=== PATIENT | female | born 1965 | race Caucasian/White ===

== ENCOUNTER 2018-04-30 22:01 | Inpatient (IN) | payer OTHER ==
[~2018-04-30 22:01] MED LIST: MELATONIN 5 MG TABLETS PO PRN
--- NOTE | 2018-04-30 22:54 | HP ---
CIWA Score - CIWA Score Nausea/Vomitin Muscle Tremors: 2 Anxiety: 3 Agitation: 3 Paroxysmal Sweats: 2 Orientation: 0-Oriented Tacttile Disturbances: 0-None Auditory Disturbances: 0-None Visual Disturbances: 0-None Headache: 0-None Present CIWA-Ar Total Score: 12 Admission ROS S - HPI Chief Complaint: alcohol withdrawal Allergies/Adverse Reactions: Allergies Allergy/AdvReac Type Severity Reaction Status Date / Time Fish Containing Products Allergy Severe Rash Verified 04/30/18 22:54 Penicillins Allergy Severe Difficulty Verified 04/30/18 22:54 Breathing History of Present Illness: Patient is 52 yo female with hx of alcohol and nicotine dependence is here seeking detox, brought in by her friend. Patient is a poor historian. PMHX: HTN , and anxiety. Reports hx of alcohol related seizure, last episode a year ago. Denies suicidal / homicidal ideation or hx of suicide attempts. Last detox at [facility] February 2016. Longest period of sobriety 10 years. Exam Limitations: No Limitations - Review of Systems Constitutional: Chills, Loss of Appetite, Changes in sleep, Unintentional Wgt. Loss EENT: reports: No Symptoms Reported Respiratory: reports: No Symptoms reported Cardiac: reports: No Symptoms Reported GI: reports: Nausea, Poor Appetite, Poor Fluid Intake : reports: No Symptoms Reported Musculoskeletal: reports: No Symptoms Reported Integumentary: reports: No Symptoms Reported Neuro: reports: See HPI Endocrine: reports: Increased Thirst Hematology: reports: No Symptoms Reported Psychiatric: reports: Orientated x3, Anxious Other Systems: Reviewed and Negative Patient History - Patient Medical History Hx Anemia: No Hx Asthma: No Hx Chronic Obstructive Pulmonary Disease (COPD): No Hx Cancer: No Hx Cardiac Disorders: No Hx Congestive Heart Failure: No Hx Hypertension: Yes (not on meds ) Hx Hypercholesterolemia: No Hx Pacemaker: No HX Cerebrovascular Accident: No Hx Seizures: Yes (last episode 1 year ago ) Hx Dementia: No Hx Diabetes: No Hx Gastrointestinal Disorders: Yes (acid reflux) Hx Liver Disease: No Hx Genitourinary Disorders: No Hx Sexually Transmitted Disorders: No Hx Renal Disease (ESRD): No Hx Thyroid Disease: No Hx Human Immunodeficiency Virus (HIV): No Hx Hepatitis C: No Hx Depression: Yes Hx Suicide Attempt: No Hx Bipolar Disorder: No Hx Schizophrenia: No - Patient Surgical History Past Surgical History: No Hx Neurologic Surgery: No Hx Cataract Extraction: No Hx Cardiac Surgery: No Hx Lung Surgery: No Hx Breast Surgery: No Hx Breast Biopsy: No Hx Abdominal Surgery: No Hx Appendectomy: No Hx Cholecystectomy: No Hx Genitourinary Surgery: No Hx Section: No Hx Orthopedic Surgery: No Hx Hysterectomy: No Other Surgical History: abdominal plasty Anesthesia Reaction: No - PPD History Date: 02/29/16 PPD to be Administered?: Yes - Reproductive History Patient is a Female of Child Bearing Age (11 -55 yrs old): Yes (Post menopausal ) Last Menstrual Period: 01/16/16 Patient : No - Smoking Cessation Smoking history: Current every day smoker Have you smoked in the past 12 months: Yes Aproximately how many cigarettes per day: 20 Hx Chewing Tobacco Use: No Initiated information on smoking cessation: Yes 'Breaking Loose' booklet given: 04/30/18 - Substance & Tx. History Hx Alcohol Use: Yes Hx Substance Use: Yes Substance Use Type: Alcohol Hx Substance Use Treatment: Yes (Last detox at [facility] February 2016.) - Substances Abused Alcohol Route: Oral Frequency: Daily Amount used: 1 litter of wine per day Age of first use: 8 Date of Last Use: 04/30/18 Family Disease History - Family Disease History Family Disease History: CA: Grandparent Admission Physical Exam [facility] - Physical General Appearance: Yes: Disheveled, Mild Distress, Irritable, Sweating, Other ( malodorous) HEENTM: Yes: EOMI, Hearing grossly Normal, Normal ENT Inspection, Normocephalic , Normal Voice, XI, Pharynx Normal, Tm's normal Respiratory: Yes: Chest Non-Tender, Lungs Clear, Normal Breath Sounds, No Respiratory Distress, No Accessory Muscle Use Neck: Yes: Within Normal Limits Breast: Yes: Breast Exam Deferred Cardiology: Yes: Regular Rhythm, Regular Rate Abdominal: Yes: Normal Bowel Sounds, Non Tender, Soft, Protuberent Genitourinary: Yes: Within Normal Limits Back: Yes: Normal Inspection Musculoskeletal: Yes: full range of Motion, Gait Steady, Pelvis Stable Extremities: Yes: Normal Capillary Refill, Normal Inspection, Normal Range of Motion, Non-Tender Neurological: Yes: electrician maintenance II-XII NML intact, Fully Oriented, Alert, Motor Strength 5/5, Depressed Affect Integumentary: Yes: Normal Color, Warm, Diaphoresis Lymphatic: Yes: Within Normal Limits - Diagnostic (1) Nausea Current Visit: Yes Status: Acute (2) Alcohol dependence with uncomplicated withdrawal Current Visit: Yes Status: Acute (3) GERD (gastroesophageal reflux disease) Current Visit: Yes Status: Chronic Qualifiers: Esophagitis presence: without esophagitis Qualified Code(s): K21.9 - Gastro -esophageal reflux disease without esophagitis Cleared for Admission B[facility] - Detox or Rehab B[facility] Level of Care: Medically Managed Detox Regimen/Protocol: Valium [facility] Breath Alcohol Content Breath Alcohol Content: 0
[2018-04-30] MEDS ORDERED: LOPERAMIDE HCL 2 MG CAPSULE PO PRN (23:15)
[2018-04-30] MEDS ORDERED: P-EPHED 60MG/TRIPROLIDI 2.5MG TABLET PO PRN (23:15)
[2018-04-30] MEDS ORDERED: IBUPROFEN 400 MG TABLET (FP) PO PRN (23:15)
[2018-04-30] MEDS ORDERED: hydrOXYzine PAMOATE 50 MG CAPSULE (FP) PO PRN (23:15)
[2018-04-30] MEDS ORDERED: ACETAMINOPHEN 325 MG TABLET (FP) PO PRN (23:15)
[2018-04-30] MEDS ORDERED: MAGNESIUM CITRATE 300 ML BOTTLE PO PRN (23:15)
[2018-04-30] MEDS ORDERED: MENTHOL/PHENOL 1 EACH UD MM PRN (23:15)
[2018-04-30] MEDS ORDERED: MAGNESIUM HYDROX 2400MG/30ML ORAL SUSPENSION 30 ML CUP PO PRN (23:15)
[2018-04-30] MEDS ORDERED: guaiFENesin/D-METHORPHAN HB 10 ML UNIT-DOSE CUPS PO PRN (23:15)
[2018-04-30] MEDS ORDERED: NICOTINE POLACRILEX 2 MG GUM BC PRN (23:15)
[2018-04-30] MEDS ORDERED: diazePAM 5 MG TABLET PO ONE (23:15)
[2018-04-30] MEDS ORDERED: MAG HYDROX/AL HYDROX/SIMETH 30 ML UNIT-DOSE CUP PO PRN (23:15)
[2018-04-30 23:41] VITALS: BMI 26.6
[2018-05-01] MEDS: diazePAM 5 MG TABLET PO SCH ×6 (00:48→22:48)
--- NOTE | 2018-05-01 08:57 | EKG ---
Test Reason : Blood Pressure : / mmHG Vent. Rate : 099 BPM Atrial Rate : 099 BPM P-R Int : 144 ms QRS Dur : 092 ms QT Int : 362 ms P-R-T Axes : 047 -01 044 degrees QTc Int : 464 ms NORMAL SINUS RHYTHM MINIMAL VOLTAGE CRITERIA FOR LVH, MAY BE NORMAL VARIANT NO PREVIOUS ECGS AVAILABLE Confirmed by AL PARRA MD ([id number]) on 05/01/2018 8:57:17 AM Referred By: Confirmed By:AL PARRA MD
[2018-05-01] MEDS: diazePAM 5 MG TABLET PO PRN (09:34)
[2018-05-01 09:53] LABS: HEMATOCRIT 38.8 % (32.4-45.2); HEMOGLOBIN 13.2 GM/dL (10.7-15.3); MCH 29.2 pg (25.7-33.7); MCHC 34.1 g/dl (32.0-36.0); MEAN CELL VOLUME 85.5 fl (80-96); MEAN PLT VOLUME 7.2 fl (7.5-11.1); PLATELET COUNT 60 K/MM3 (134-434); RBC 4.54 M/mm3 (3.60-5.2); RDW 18.8 % (11.6-15.6)
[2018-05-01] MEDS: NICOTINE 21 MG/24 HOURS TOPICAL PATCH TD SCH (10:11)
[2018-05-01] MEDS: PRENATAL VITAMINS W/ FOLIC ACID TABLET (FP) PO SCH (10:12)
[2018-05-01] MEDS: LISINOPRIL 10 MG TABLET (FP) PO SCH (10:12)
[2018-05-01 10:51] LABS: ALBUMIN 3.1 g/dl (3.4-5.0); ANION GAP 11 (8-16); BILIRUBIN,TOTAL 0.3 mg/dL (0.2-1.0); BLOOD UREA NITROGEN 7 mg/dL (7-18); CALCIUM 7.7 mg/dL (8.5-10.1); CHLORIDE 101 mmol/L (98-107); CO2 29 mmol/L (21-32); CREATININE 0.5 mg/dL (0.55-1.02); GLUCOSE,RANDOM 80 mg/dL (74-106); POTASSIUM 3.6 mmol/L (3.5-5.1); SGOT/AST 61 U/L (15-37); SGPT/ALT 48 U/L (12-78); SODIUM 141 mmol/L (136-145); TOT PROT 6.9 g/dl (6.4-8.2)
[2018-05-01 10:52] LABS: ALK PHOS 112 U/L (45-117)
--- NOTE | 2018-05-01 11:53 | PN ---
S CIWA - CIWA Score Nausea/Vomitin-No Nausea/No Vomiting Muscle Tremors: 4-Moderate,w/Arms Extend Anxiety: 4-Mod. Anxious/Guarded Agitation: 4-Moderately Restless Paroxysmal Sweats: 1-Minimal Palms Moist Orientation: 0-Oriented Tacttile Disturbances: 0-None Auditory Disturbances: 0-None Visual Disturbances: 0-None Headache: 0-None Present CIWA-Ar Total Score: 13 B[facility] Progress Note (SOAP) Subjective: ANXIETY,SWEATS,INTERMITTENT SLEEP Objective: 05/01/18 11:52 Vital Signs 05/01/18 05/01/18 05/01/18 04:00 04:30 05:00 Temperature Pulse Rate 91 H 95 H 96 H Respiratory 18 18 18 Rate Blood Pressure 05/01/18 05/01/18 05/01/18 05:30 06:00 06:30 Temperature 97.2 F L Pulse Rate 98 H 98 H 87 Respiratory 18 18 18 Rate Blood Pressure 138/91 05/01/18 05/01/18 05/01/18 07:00 07:30 08:00 Temperature Pulse Rate 87 107 H 107 H Respiratory 18 18 18 Rate Blood Pressure 05/01/18 05/01/18 05/01/18 09:00 09:30 10:00 Temperature 98.1 F Pulse Rate 105 H 108 H 102 H Respiratory 18 18 18 Rate Blood Pressure 162/107 05/01/18 10:30 Temperature Pulse Rate 102 H Respiratory 18 Rate Blood Pressure Laboratory Tests 05/01/18 05/01/18 07:00 07:00 WBC 4.0 RBC 4.54 Hgb 13.2 Hct 38.8 MCV 85.5 MCH 29.2 MCHC 34.1 RDW 18.8 H Plt Count 60 L D MPV 7.2 L D Sodium 141 Potassium 3.6 Chloride 101 Carbon Dioxide 29 Anion Gap 11 BUN 7 Creatinine 0.5 L Creat Clearance w eGFR > 60 Random Glucose 80 Calcium 7.7 L Total Bilirubin 0.3 D AST 61 H ALT 48 Alkaline Phosphatase 112 Total Protein 6.9 Albumin 3.1 L Assessment: 05/01/18 11:53 WITHDRAWAL SX Plan: CONTINUE DETOX
--- NOTE | 2018-05-01 12:00 | CONSULT ---
[facility] Psychiatric Consult - Data Date of interview: 05/01/18 Admission source: [facility] Identifying data: This is 52 years old woman mother of 2, unemployed(lost her job as [employer]OG [employer]ER recently),domiciled seeking detox treatment for alcohol dependence. Substance Abuse History: Patient reports drinking problems since 15-16 years old ,became progressively heavy .Currently she consumes about 1 liter of wine daily. Medical History: Significant for GERD,Alcohol related seizures. Psychiatric History: Patient denies previous psychiatric history,reports anxiety on and off specially while withdrawing from alcohol.Not on any medications. Physical/Sexual Abuse/Trauma History: Denies. Mental Status Exam - Mental Status Exam Alert and Oriented to: Time, Place, Person Cognitive Function: Grossly Intact Patient Appearance: Unkempt Mood: Euthymic Affect: Mood Congruent Patient Behavior: Cooperative Speech Pattern: Clear Voice Loudness: Normal Thought Process: Goal Oriented Thought Disorder: Not Present Hallucinations: Denies Suicidal Ideation: Denies Homicidal Ideation: Denies Insight/Judgement: Fair Sleep: Fair Appetite: Fair Muscle strength/Tone: Normal Gait/Station: Normal Psychiatric Findings - Problem List ([place] 1, 2,3) (1) GERD (gastroesophageal reflux disease) Current Visit: Yes Status: Chronic Qualifiers: Esophagitis presence: esophagitis presence not specified Qualified Code(s) : K21.9 - Gastro-esophageal reflux disease without esophagitis (2) Alcohol related seizure Current Visit: Yes Status: Inactive (3) EtOH dependence Current Visit: Yes Status: Chronic (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
[2018-05-01] MEDS ORDERED: ONDANSETRON *ODT* 4 MG TABLET SL PRN (13:35)
[2018-05-01] MEDS ORDERED: cloNIDine HCL 0.1 MG TABLET PO ONE (13:45)
[2018-05-01] MEDS ORDERED: TRIMETHOBENZAMIDE HCL 200MG/2ML INJ IM ONE (14:00)
[2018-05-01] MEDS: THIAMINE HCL 100 MG TABLET (FP) PO SCH (22:49)
--- NOTE | 2018-05-01 23:41 | PN ---
[facility] Progress Note Note: Called to see patient because patient heart rate at 125 bpm. Patient is alert and denies chest pain, SOB, or palpitations. Patient is c/o continued vomiting and has been refusing Valium. Vital Signs - 8 hr 05/01/18 05/01/18 05/01/18 16:30 17:00 17:30 Temperature Pulse Rate 107 H 105 H 110 H Respiratory 18 18 18 Rate Blood Pressure 05/01/18 05/01/18 05/01/18 18:00 18:30 18:35 Temperature 98.4 F Pulse Rate 112 H 109 H 105 H Respiratory 18 18 18 Rate Blood Pressure 149/103 05/01/18 05/01/18 05/01/18 19:00 19:30 20:00 Temperature Pulse Rate 102 H 100 H 158 H Respiratory 18 18 18 Rate Blood Pressure 05/01/18 05/01/18 05/01/18 20:30 21:00 21:30 Temperature Pulse Rate 146 H 122 H 120 H Respiratory 18 18 18 Rate Blood Pressure 05/01/18 05/01/18 05/01/18 22:00 22:30 22:55 Temperature 97.0 F L Pulse Rate 119 H 114 H 146 H Respiratory 18 18 20 Rate Blood Pressure 139/94 Patient HR 124 w/ RR. Abd soft and non-tender. Vomiting yellowish liquid. Lungs CTA. Diaphoretic. Discussed the importance of notifying of nausea and vomiting. Discussed the relationship of vomiting and tachycardia to withdrawal symptoms. Will put on standing order for zofran for next 24 hours. Continue Valium. Will repeat EGG in am.
[2018-05-01] MEDS: ONDANSETRON *ODT* 4 MG TABLET SL SCH (23:52)
[2018-05-02] MEDS: ONDANSETRON *ODT* 4 MG TABLET SL SCH ×3 (07:00→22:32)
[2018-05-02] MEDS ORDERED: TRIMETHOBENZAMIDE HCL 200MG/2ML INJ IM PRN (11:20)
[2018-05-02] MEDS: diazePAM 5 MG TABLET PO SCH ×2 (12:44→22:32)
[2018-05-02] MEDS: PRENATAL VITAMINS W/ FOLIC ACID TABLET (FP) PO SCH (12:45)
[2018-05-02] MEDS: LISINOPRIL 10 MG TABLET (FP) PO SCH (12:45)
[2018-05-02] MEDS: NICOTINE 21 MG/24 HOURS TOPICAL PATCH TD SCH (12:48)
[2018-05-02] MEDS: cloNIDine HCL 0.1 MG TABLET PO PRN ×2 (14:42→22:31)
[2018-05-02] MEDS: diazePAM 5 MG TABLET PO PRN (14:42)
--- NOTE | 2018-05-02 16:07 | PN ---
S CIWA - CIWA Score Nausea/Vomitin-Cont. Nausea/Vomiting Muscle Tremors: 2 Anxiety: 2 Agitation: 2 Paroxysmal Sweats: 1-Minimal Palms Moist Orientation: 0-Oriented Tacttile Disturbances: 1-Very Mild Itch/Numbness Auditory Disturbances: 0-None Visual Disturbances: 1-Very Mild Sensitivity Headache: 2-Mild CIWA-Ar Total Score: 18 [facility] Progress Note (SOAP) Subjective: Nausea, vomiting, anxiety and tremors Objective: 05/02/18 16:04 Vital Signs - 8 hr 05/02/18 05/02/18 10:46 15:02 Temperature 97.1 F L 97.9 F Pulse Rate 119 H 123 H Respiratory 18 16 Rate Blood Pressure 131/92 140/85 Laboratory Last Values WBC 4.0 K/mm3 (4.0-10.0) 05/01/18 07:00 RBC 4.54 M/mm3 (3.60-5.2) 05/01/18 07:00 Hgb 13.2 GM/dL (10.7-15.3) 05/01/18 07:00 Hct 38.8 % (32.4-45.2) 05/01/18 07:00 MCV 85.5 fl (80-96) 05/01/18 07:00 MCH 29.2 pg (25.7-33.7) 05/01/18 07:00 MCHC 34.1 g/dl (32.0-36.0) 05/01/18 07:00 RDW 18.8 % (11.6-15.6) H 05/01/18 07:00 Plt Count 60 K/MM3 (134-434) L D 05/01/18 07:00 MPV 7.2 fl (7.5-11.1) L D 05/01/18 07:00 Sodium 141 mmol/L (136-145) 05/01/18 07:00 Potassium 3.6 mmol/L (3.5-5.1) 05/01/18 07:00 Chloride 101 mmol/L (98-107) 05/01/18 07:00 Carbon Dioxide 29 mmol/L (21-32) 05/01/18 07:00 Anion Gap 11 (8-16) 05/01/18 07:00 BUN 7 mg/dL (7-18) 05/01/18 07:00 Creatinine 0.5 mg/dL (0.55-1.02) L 05/01/18 07:00 Creat Clearance w eGFR > 60 (>60) 05/01/18 07:00 Random Glucose 80 mg/dL (74-106) 05/01/18 07:00 Calcium 7.7 mg/dL (8.5-10.1) L 05/01/18 07:00 Total Bilirubin 0.3 mg/dL (0.2-1.0) D 05/01/18 07:00 AST 61 U/L (15-37) H 05/01/18 07:00 ALT 48 U/L (12-78) 05/01/18 07:00 Alkaline Phosphatase 112 U/L (45-117) 05/01/18 07:00 Total Protein 6.9 g/dl (6.4-8.2) 05/01/18 07:00 Albumin 3.1 g/dl (3.4-5.0) L 05/01/18 07:00 RPR Titer Nonreactive (NONREACTIVE) 05/01/18 07:00 Labs noted, no panic results N/V x 2 days, unable to keep anything down Assessment: 05/02/18 16:05 Withdrawal sx Nausea and Vomiting Plan: Continue detox Tigan 200mg IM Q 8hrs
[2018-05-02] MEDS: THIAMINE HCL 100 MG TABLET (FP) PO SCH (22:31)
[2018-05-03] MEDS: PRENATAL VITAMINS W/ FOLIC ACID TABLET (FP) PO SCH (10:26)
[2018-05-03] MEDS: diazePAM 5 MG TABLET PO SCH (10:26)
[2018-05-03] MEDS: LISINOPRIL 10 MG TABLET (FP) PO SCH (10:27)
[2018-05-03] MEDS: NICOTINE 21 MG/24 HOURS TOPICAL PATCH TD SCH (10:27)
--- NOTE | 2018-05-03 12:29 | PN ---
[facility] Progress Note (SOAP) Subjective: FEELING BETTER NO TREMOR LESS SWEAT SLEEP BETTER AT NIGHT Objective: 05/03/18 12:27 Vital Signs Temperature 97.7 F 05/03/18 10:26 Pulse Rate 83 05/03/18 10:26 Respiratory Rate 18 05/03/18 10:26 Blood Pressure 99/64 05/03/18 10:26 O2 Sat by Pulse Oximetry (%) Laboratory Last Values WBC 4.0 K/mm3 (4.0-10.0) 05/01/18 07:00 RBC 4.54 M/mm3 (3.60-5.2) 05/01/18 07:00 Hgb 13.2 GM/dL (10.7-15.3) 05/01/18 07:00 Hct 38.8 % (32.4-45.2) 05/01/18 07:00 MCV 85.5 fl (80-96) 05/01/18 07:00 MCH 29.2 pg (25.7-33.7) 05/01/18 07:00 MCHC 34.1 g/dl (32.0-36.0) 05/01/18 07:00 RDW 18.8 % (11.6-15.6) H 05/01/18 07:00 Plt Count 60 K/MM3 (134-434) L D 05/01/18 07:00 MPV 7.2 fl (7.5-11.1) L D 05/01/18 07:00 Sodium 141 mmol/L (136-145) 05/01/18 07:00 Potassium 3.6 mmol/L (3.5-5.1) 05/01/18 07:00 Chloride 101 mmol/L (98-107) 05/01/18 07:00 Carbon Dioxide 29 mmol/L (21-32) 05/01/18 07:00 Anion Gap 11 (8-16) 05/01/18 07:00 BUN 7 mg/dL (7-18) 05/01/18 07:00 Creatinine 0.5 mg/dL (0.55-1.02) L 05/01/18 07:00 Creat Clearance w eGFR > 60 (>60) 05/01/18 07:00 Random Glucose 80 mg/dL (74-106) 05/01/18 07:00 Calcium 7.7 mg/dL (8.5-10.1) L 05/01/18 07:00 Total Bilirubin 0.3 mg/dL (0.2-1.0) D 05/01/18 07:00 AST 61 U/L (15-37) H 05/01/18 07:00 ALT 48 U/L (12-78) 05/01/18 07:00 Alkaline Phosphatase 112 U/L (45-117) 05/01/18 07:00 Total Protein 6.9 g/dl (6.4-8.2) 05/01/18 07:00 Albumin 3.1 g/dl (3.4-5.0) L 05/01/18 07:00 RPR Titer Nonreactive (NONREACTIVE) 05/01/18 07:00 LAB NOTED Assessment: 05/03/18 12:27 MILD WITHDRAWAL SX ALCOHOL RELATED LIVER ENZYME ELEVATION Plan: MEDICALLY SUPERVISED DETOX DISCUSS LIVER ENZYME ELEVATION RELATED TO ALCOHOL CONSUMPTION
[2018-05-03] MEDS: diazePAM 5 MG TABLET PO PRN (14:27)
[2018-05-03 23:04] VITALS: BP 109/70; PULSE 95; TEMP 98.1
[2018-05-04] MEDS ORDERED: diazePAM 5 MG TABLET PO SCH (10:00)
--- NOTE | 2018-05-04 10:14 | DS ---
[facility] Detox Discharge Summary Admission Date: 04/30/18 Discharge Date: 05/04/18 - History Present History: Alcohol Dependence Additional Comments: 52 years old female admitted 04/30/18 for alcohol withdrawal sx completed alcohol detox regimen tolerate well no alcohol withdrawal sx patient left the detox unit early of the shift the provider does not have the opportunity face to face with the patient - Physical Exam Results Vital Signs: Vital Signs Temperature 98.1 F 05/03/18 23:03 Pulse Rate 95 H 05/03/18 23:03 Respiratory Rate 18 05/04/18 00:30 Blood Pressure 109/70 05/03/18 23:03 O2 Sat by Pulse Oximetry (%) Pertinent Admission Physical Exam Findings: alcohol withdrawal sx Vital Signs Temperature 98.1 F 05/03/18 23:03 Pulse Rate 95 H 05/03/18 23:03 Respiratory Rate 18 05/04/18 00:30 Blood Pressure 109/70 05/03/18 23:03 O2 Sat by Pulse Oximetry (%) Laboratory Last Values WBC 4.0 K/mm3 (4.0-10.0) 05/01/18 07:00 RBC 4.54 M/mm3 (3.60-5.2) 05/01/18 07:00 Hgb 13.2 GM/dL (10.7-15.3) 05/01/18 07:00 Hct 38.8 % (32.4-45.2) 05/01/18 07:00 MCV 85.5 fl (80-96) 05/01/18 07:00 MCH 29.2 pg (25.7-33.7) 05/01/18 07:00 MCHC 34.1 g/dl (32.0-36.0) 05/01/18 07:00 RDW 18.8 % (11.6-15.6) H 05/01/18 07:00 Plt Count 60 K/MM3 (134-434) L D 05/01/18 07:00 MPV 7.2 fl (7.5-11.1) L D 05/01/18 07:00 Sodium 141 mmol/L (136-145) 05/01/18 07:00 Potassium 3.6 mmol/L (3.5-5.1) 05/01/18 07:00 Chloride 101 mmol/L (98-107) 05/01/18 07:00 Carbon Dioxide 29 mmol/L (21-32) 05/01/18 07:00 Anion Gap 11 (8-16) 05/01/18 07:00 BUN 7 mg/dL (7-18) 05/01/18 07:00 Creatinine 0.5 mg/dL (0.55-1.02) L 05/01/18 07:00 Creat Clearance w eGFR > 60 (>60) 05/01/18 07:00 Random Glucose 80 mg/dL (74-106) 05/01/18 07:00 Calcium 7.7 mg/dL (8.5-10.1) L 05/01/18 07:00 Total Bilirubin 0.3 mg/dL (0.2-1.0) D 05/01/18 07:00 AST 61 U/L (15-37) H 05/01/18 07:00 ALT 48 U/L (12-78) 05/01/18 07:00 Alkaline Phosphatase 112 U/L (45-117) 05/01/18 07:00 Total Protein 6.9 g/dl (6.4-8.2) 05/01/18 07:00 Albumin 3.1 g/dl (3.4-5.0) L 05/01/18 07:00 RPR Titer Nonreactive (NONREACTIVE) 05/01/18 07:00 lab noted low calcium yogur / calcium rich food - Treatment Hospital Course: Detox Protocol Followed, Detoxed Safely, Responded well, Discharged Condition Good, Rehab Referral Accepted Patient has Accepted a Rehab Referral to: [facility] - Medication Discharge Medications: Ambulatory Orders Lisinopril [Prinivil] 10 mg PO DAILY #30 tablet 05/03/18 - Diagnosis (1) Alcohol dependence with uncomplicated withdrawal Status: Acute (2) GERD (gastroesophageal reflux disease) Status: Chronic Qualifiers: Esophagitis presence: without esophagitis Qualified Code(s): K21.9 - Gastro -esophageal reflux disease without esophagitis (3) Hypertension Status: Chronic Qualifiers: Hypertension type: essential hypertension Qualified Code(s): I10 - Essential (primary) hypertension - AMA Did Patient Leave Against Medical Advice: No
== END 2018-05-04 06:32 | disposition home or self-care (01) | DRG 775 ==
LOC: YASAS 22:01 → Y6N 23:38
PROVIDERS: ADMIT Family Medicine Addiction Medicine; ATTEND Family Medicine Addiction Medicine
PROC: HZ2ZZZZ Detoxification Services for Substance Abuse Treatment (ICD-10-PCS; principal; 2018-04-30)
DX: F10.230 Alcohol dependence with withdrawal, uncomplicated (principal); F10.280 Alcohol dependence with alcohol-induced anxiety disorder; F17.210 Nicotine dependence, cigarettes, uncomplicated; I10 Essential (primary) hypertension; K21.9 Gastro-esophageal reflux disease without esophagitis; R94.5 Abnormal results of liver function studies; R11.2 Nausea with vomiting, unspecified; Z86.69 Personal history of other diseases of the nervous system and sense organs; Z88.0 Allergy status to penicillin; Z91.013 Allergy to seafood
CPT/HCPCS: 36415; 71046-TC-FY; 80053; 85027; 86593; 93005; 93010; J0735; Q0162